=== PATIENT | female | born 1965 | race Caucasian/White ===

== ENCOUNTER 2016-08-19 11:57 | Emergency (ER) | payer BC, OTHER ==
[~2016-08-19] VITALS: Ht 172.7 cm; Wt 72.2 kg
[2016-08-19 12:00] VITALS: BP 179/98
== END 2016-08-19 14:05 | disposition home or self-care (01) ==
LOC: ED 14:02
DX: R55 Syncope and collapse (principal); M62.830 Muscle spasm of back
CPT/HCPCS: 93005; 99283; J7512